=== PATIENT | female | born 1960 | race Caucasian/White ===

== ENCOUNTER 2024-11-24 12:43 | Emergency (ER) | payer MEDICARE ==
[~2024-11-24] VITALS: Ht 167.6 cm; Wt 97.1 kg
[2024-11-24] MEDS ORDERED: HYDROCODONE/ACETA 7.5/325 TAB PO ONE (13:15)
[2024-11-24] MEDS ORDERED: predniSONE 20 MG TAB PO ONE (13:15)
[2024-11-24] MEDS ORDERED: HYDROCODON-ACE1 EA10 PO (13:22)
[2024-11-24] MEDS ORDERED: METHYLPREDNISOLO4 M1 PO (13:22)
[2024-11-24 13:39] VITALS: BP 140/74
== END 2024-11-24 13:41 | disposition home or self-care (01) ==
LOC: ED 12:43
DX: M54.42 Lumbago with sciatica, left side (principal); E66.9 Obesity, unspecified; Z68.34 Body mass index [BMI] 34.0-34.9, adult
CPT/HCPCS: 99283; A9270; J7512